=== PATIENT | female | born 1995 | race Caucasian/White ===

== ENCOUNTER 2016-12-11 10:47 | Emergency (ER) | payer OTHER ==
[~2016-12-11] VITALS: Ht 160 cm; Wt 52.3 kg
[~2016-12-11 10:47] MED LIST: NOMED
[2016-12-11 10:58] VITALS: BP 116/80; PULSE 75; RESP 14; O2SAT 100
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
[2016-12-11 13:26] VITALS: BP 111/74; PULSE 95; RESP 15; O2SAT 95
[2016-12-11 13:52] VITALS: BP 111/74; PULSE 95; RESP 15; O2SAT 95
== END 2016-12-11 13:53 | disposition home or self-care (01) ==
LOC: SED 10:47
DX: S06.0X0A Concussion without loss of consciousness, initial encounter (principal); V43.52XA Car driver injured in collision with other type car in traffic accident, initial encounter; Y93.89 Activity, other specified; Y92.410 Unspecified street and highway as the place of occurrence of the external cause; Y99.8 Other external cause status